=== PATIENT | female | born 1955 | race Hispanic/Latino ===

== ENCOUNTER 2024-07-12 17:56 | Emergency (ER) | payer OTHER ==
--- NOTE | 2024-07-12 19:23 | ER ---
Nurse's Notes [facility] Name: Codie Mullen Age: 69 yrs Sex: Female : 1955 Arrival Date: 07/12/2024 Time: 17:56 Bed 2 Private MD: Diagnosis: Contusion of right lesser toe(s) without damage to nail, initial encounter-HEMATOMA, UNROOFED Presentation: 07/12 18:10 Chief complaint: Patient states: Dropped cast iron on right foot on the and now cm10 has blister to 2nd toe on right foot. pt has noted to have bruising to foot. No pain at this time. Pt sent from urgent care. Coronavirus screen: Client denies travel out of the [place] in the last 14 days. Ebola Screen: Patient denies travel to an Ebola-affected area in the 21 days before illness onset. Initial Sepsis Screen: Does the patient meet any 2 criteria? No. Patient's initial sepsis screen is negative. Does the patient have a suspected source of infection? No. Patient's initial sepsis screen is negative. Risk Assessment: Do you want to hurt yourself or someone else? Patient reports no desire to harm self or others. Onset of symptoms was July 09, 2024. 18:10 Method Of Arrival: Ambulatory cm10 18:10 Acuity: COLE 4 cm10 Triage Assessment: 18:14 General: Appears in no apparent distress. comfortable, Behavior is calm, cooperative. cm10 Pain: Denies pain. Neuro: No deficits noted. Level of Consciousness is awake, alert, obeys commands, Oriented to person, place, time, situation, Appropriate for age. Respiratory: No deficits noted. Airway is patent Respiratory effort is even, unlabored, Respiratory pattern is regular, symmetrical. Derm: Wound noted right second toe Wound is blister Bruising that is dark purple, yellow, on right foot. Historical: - Allergies: 18:13 No Known Allergies; cm10 - Home Meds: 18:13 Hydrochlorothiazide Oral [Active]; cm10 - PMHx: 18:13 Diabetes mellitus; Arthritis; cm10 - Immunization history:: Adult Immunizations up to date. - Infectious Disease History:: Denies. - Social history:: Smoking status: Patient denies any tobacco usage or history of. - Family history:: not pertinent. Screenin:15 [facility] ED Fall Risk Assessment (Adult) History of falling in the last 3 months, cm10 including since admission No falls in past 3 months (0 pts) Confusion or Disorientation No (0 pts) Intoxicated or Sedated No (0 pts) Impaired Gait No (0 pts) Mobility Assist Device Used No (0 pt) Altered Elimination No (0 pt) Score/Fall Risk Level 0 - 2 = Low Risk Oriented to surroundings, Maintained a safe environment, Hourly rounding (assess needs \T\ fall precautionary measures) done. Abuse screen: Denies threats or abuse. Denies injuries from another. Nutritional screening: No deficits noted. Tuberculosis screening: No symptoms or risk factors identified. Assessment: 20:13 Reassessment: Patient appears in no apparent distress at this time. Patient and/or bm8 family updated on plan of care and expected duration. Pain level reassessed. Patient is alert, oriented x 3, equal unlabored respirations, skin warm/dry/pink. Patient states feeling better. Patient states symptoms have improved. Musculoskeletal: wound to top of right foot last three toes, already cleaned and ready for wrapping. Vital Signs: 18:10 BP 124 / 54; Pulse 97; Resp 18; Temp 98.2; Pulse Ox 94% on R/A; Weight 88.45 kg; Height cm10 5 ft. 6 in. ; Pain 0/10; 20:13 BP 139 / 73; Pulse 88; Resp 17; Temp 98.2; Pulse Ox 96% ; Pain 2/10; bm8 18:10 Body Mass Index 31.47 (88.45 kg, 167.64 cm) cm10 18:10 Pain Scale: Adult cm10 20:13 Pain Scale: Adult bm8 [place] Coma Score: 20:13 Eye Response: spontaneous(4). Motor Response: obeys commands(6). Verbal Response: bm8 oriented(5). Total: 15. ED Course: 17:59 Patient arrived in ED. hb 18:03 Xander Atkins MD is Attending Physician. kristina 18:10 Dorene Tate, RN is Primary Nurse. cm10 18:12 Triage completed. cm10 18:14 Arm band placed on right wrist. Patient placed in an exam room, on a stretcher. cm10 18:22 Patient has correct armband on for positive identification. Bed in low position. Call cm10 light in reach. Side rails up X 1. Provided Education on: ER process and procedures.. 18:48 Foot Right 3 View XRAY In Process Unspecified. EDNV 19:22 Bhanu Arce MD is Referral Physician. [facility] 19:22 Referral Physician role handed off by Bhanu Arce MD [facility] 19:22 Michael Tate MD is Referral Physician. kristina 20:13 Client placed on continuous cardiac and pulse oximetry monitoring. NIBP monitoring bm8 applied. Pulse ox on. NIBP on. 20:13 No provider procedures requiring assistance completed. Patient did not have IV access bm8 during this emergency room visit. Ortho shoe applied to right foot. Wound care: to crush wound located on right second toe and right foot was cleaned with dressed with Patient tolerated well. Administered Medications: 20:13 Drug: Cvfjrgsz-Okqsetqmlf-Dxrasedwp Topical Ointment 1 application Topical once Route: bm8 Topical; Site: affected area; 20:15 Follow up: Response: No adverse reaction bm8 20:13 Drug: Trimethoprim-Sulfamethoxazole PO (160 mg-800 mg (DS) 1 tablet PO once Route: PO; bm8 20:15 Follow up: Response: No adverse reaction bm8 20:13 Drug: Cephalexin PO 500 mg PO once Route: PO; bm8 20:15 Follow up: Response: No adverse reaction bm8 Medication: 18:15 VIS not applicable for this client. cm10 Outcome: 19:23 Discharge ordered by . kristina 20:13 Discharged to home ambulatory, with family, bm8 20:13 Condition: stable 20:13 Discharge instructions given to patient, family, Instructed on discharge instructions, follow up and referral plans. no drinking with medication, no driving heavy equipment, medication usage, Demonstrated understanding of instructions, follow-up care, medications, 20:18 Prescriptions given X 4, bm8 20:21 Patient left the ED. bm8 Signatures: Dispatcher [employer] EDXander Burnham MD MD cha Baxter, Heather, VALENCIA [place] Dorene Tate RN RN cm10 Charles Nguyen RN RN bm8
--- NOTE | 2024-07-12 19:23 | EDPHYS ---
Physician Documentation [facility] Name: Codie Mullen Age: 69 yrs Sex: Female : 1955 Arrival Date: 07/12/2024 Time: 17:56 Bed 2 Private MD: ED Physician Xander Atkins HPI: 07/12 19:18 This 69 yrs old Female presents to ER via Ambulatory with complaints of Foot kristina Pain. 19:18 The patient presents with a contusion, an injury. The complaints affect the right foot, kristina right second toe. Context: The problem was sustained at home. Onset: The symptoms/episode began/occurred 3 day(s) ago. Modifying factors: The symptoms are alleviated by nothing, the symptoms are aggravated by weight bearing. Associated signs and symptoms: The patient has no apparent associated signs or symptoms. Severity of symptoms: At their worst the symptoms were mild, in the emergency department the symptoms are unchanged. The patient has not experienced similar symptoms in the past. Historical: - Allergies: 18:13 No Known Allergies; cm10 - Home Meds: 18:13 Hydrochlorothiazide Oral [Active]; cm10 - PMHx: 18:13 Diabetes mellitus; Arthritis; cm10 - Immunization history:: Adult Immunizations up to date. - Infectious Disease History:: Denies. - Social history:: Smoking status: Patient denies any tobacco usage or history of. - Family history:: not pertinent. ROS: 19:18 Constitutional: Negative for fever, chills, and weight loss, Eyes: Negative for injury, kristina pain, redness, and discharge, ENT: Negative for injury, pain, and discharge, Neck: Negative for injury, pain, and swelling, Cardiovascular: Negative for chest pain, palpitations, and edema, Respiratory: Negative for shortness of breath, cough, wheezing, and pleuritic chest pain, Abdomen/GI: Negative for abdominal pain, nausea, vomiting, diarrhea, and constipation, Back: Negative for injury and pain, : Negative for injury, bleeding, discharge, and swelling, Neuro: Negative for headache, weakness, numbness, tingling, and seizure, Psych: Negative for depression, anxiety, suicide ideation, homicidal ideation, and hallucinations, Allergy/Immunology: Negative for hives, rash, and allergies, Endocrine: Negative for neck swelling, polydipsia, polyuria, polyphagia, and marked weight changes, Hematologic/Lymphatic: Negative for swollen nodes, abnormal bleeding, and unusual bruising, 19:18 MS/extremity: Positive for pain, of the right second toe, Exam: 19:18 Constitutional: This is a well developed, well nourished patient who is awake, alert, kristina and in no acute distress. Head/Face: Normocephalic, atraumatic. Eyes: Pupils equal round and reactive to light, extra-ocular motions intact. Lids and lashes normal. Conjunctiva and sclera are non-icteric and not injected. Cornea within normal limits. Periorbital areas with no swelling, redness, or edema. ENT: Nares patent. No nasal discharge, no septal abnormalities noted. Tympanic membranes are normal and external auditory canals are clear. Oropharynx with no redness, swelling, or masses, exudates, or evidence of obstruction, uvula midline. Mucous membranes moist. Neck: Trachea midline, no thyromegaly or masses palpated, and no cervical lymphadenopathy. Supple, full range of motion without nuchal rigidity, or vertebral point tenderness. No Meningismus. Chest/axilla: Normal chest wall appearance and motion. Nontender with no deformity. No lesions are appreciated. Cardiovascular: Regular rate and rhythm with a normal S1 and S2. No gallops, murmurs, or rubs. Normal PMI, no JVD. No pulse deficits. Respiratory: Lungs have equal breath sounds bilaterally, clear to auscultation and percussion. No rales, rhonchi or wheezes noted. No increased work of breathing, no retractions or nasal flaring. Abdomen/GI: Soft, non-tender, with normal bowel sounds. No distension or tympany. No guarding or rebound. No evidence of tenderness throughout. Back: No spinal tenderness. No costovertebral tenderness. Full range of motion. Skin: Warm, dry with normal turgor. Normal color with no rashes, no lesions, and no evidence of cellulitis. Neuro: Awake and alert, GCS 15, oriented to person, place, time, and situation. Cranial nerves II-XII grossly intact. Motor strength 5/5 in all extremities. Sensory grossly intact. Cerebellar exam normal. Normal gait. Psych: Awake, alert, with orientation to person, place and time. Behavior, mood, and affect are within normal limits. 19:18 Musculoskeletal/extremity: ROM: limited active range of motion due to pain, limited passive range of motion due to pain, Circulation is intact in all extremities. Sensation intact. Compartment Syndrome exam of affected extremity: is normal. Weight bearing: able to fully bear weight, without difficulty, Vital Signs: 18:10 BP 124 / 54; Pulse 97; Resp 18; Temp 98.2; Pulse Ox 94% on R/A; Weight 88.45 kg; Height cm10 5 ft. 6 in. ; Pain 0/10; 20:13 BP 139 / 73; Pulse 88; Resp 17; Temp 98.2; Pulse Ox 96% ; Pain 2/10; bm8 18:10 Body Mass Index 31.47 (88.45 kg, 167.64 cm) cm10 18:10 Pain Scale: Adult cm10 20:13 Pain Scale: Adult bm8 [place] Coma Score: 20:13 Eye Response: spontaneous(4). Motor Response: obeys commands(6). Verbal Response: bm8 oriented(5). Total: 15. Procedures: 19:18 Performed PUNCTURED BLOOD BLISTER X 4 , COVERED WITH NEOSPORN, DRESSED. [facility] MDM: 18:03 Medical Screening Exam initiated kristina 19:18 Differential diagnosis: fracture, arthritis, gout, cellulitis. Data reviewed: vital [facility] signs, nurses notes, radiologic studies, plain films. Consideration of Admission/Observation Escalation of care including admission/observation considered. I considered the following discharge prescriptions or medication management in the emergency department Medications were administered in the Emergency Department. See MAR. Independent interpretation of the following test(s) in the Emergency Department X-Ray: My interpretation is NO GROSS FX. Test considered but Not performed: Labs: NO LABS. Historians other than the Patient: Spouse/Significant Other: SPOUSE WELL INFORMED. Care significantly affected by the following chronic conditions: Diabetes, Obesity, ARTHRITIS. 07/12 18:15 Order name: Foot Right 3 View XRAY cm10 07/12 19:09 Order name: Wound Care; Complete Time: 20:13 [facility] 07/12 19:09 Order name: Post-op Orthopedic Shoe; Complete Time: 20:13 [facility] Administered Medications: 20:13 Drug: Ycbnizxb-Eflzmtixdx-Tucpwamyd Topical Ointment 1 application Topical once Route: bm8 Topical; Site: affected area; 20:15 Follow up: Response: No adverse reaction bm8 20:13 Drug: Trimethoprim-Sulfamethoxazole PO (160 mg-800 mg (DS) 1 tablet PO once Route: PO; bm8 20:15 Follow up: Response: No adverse reaction bm8 20:13 Drug: Cephalexin PO 500 mg PO once Route: PO; bm8 20:15 Follow up: Response: No adverse reaction bm8 Disposition Summary: 07/12/24 19:23 Discharge Ordered Notes: Location: Home [facility] Problem: new kristina Symptoms: have improved kristina Condition: Stable kristina Diagnosis - Contusion of right lesser toe(s) without damage to nail, initial encounter - kristina HEMATOMA, UNROOFED Followup: kristina - With: Private Physician - When: 2 - 3 days - Reason: Recheck today's complaints, Continuance of care, Re-evaluation by your physician Followup: kristina - With: Michael Tate MD - When: 1 - 2 days - Reason: Recheck today's complaints, Re-evaluation by your physician Discharge Instructions: - Discharge Summary Sheet kristina - Foot Contusion kristina - Hematoma kristina - Hematoma, [id number] kristina - Foot Contusion, [id number] [facility] Forms: - Medication Reconciliation Form [facility] - Antibiotic Education kristina - Prescription Opioid Use [facility] - Patient Portal Instructions [facility] - Leadership Thank You Letter [facility] Prescriptions: - Centany 2 % Topical ointment - apply 1 application TOPICAL route 3 times per day; 22 gram tube; Refills: 0, [facility] Product Selection Permitted - Cephalexin 500 mg Oral capsule - take 1 capsule ORAL route every 6 hours for 7 days; 28 capsule; Refills: 0, [facility] Product Selection Permitted - Fluconazole 200 mg Oral tablet - take 1 tablet ORAL route one time TAKE IN 1 WEEK IF NEEDED, REPEAT THE kristina FOLLOWING WEEK IF NEEDED; 2 tablet; Refills: 0, Product Selection Permitted - Bactrim DS 800-160 mg Oral Tablet - take 1 tablet ORAL route every 12 hours for 7 days; 14 tablet; Refills: 0, [facility] Product Selection Permitted Signatures: Dispatcher [employer] EDXander Burnham MD MD cha Martinez, Clarissa, RN RN cm10 Charles Nguyen, RN RN bm8 Corrections: (The following items were deleted from the chart) 18:15 18:15 Foot Right 3 View+RAD.RAD.BRZ ordered. EDSC ED
[2024-07-12] MEDS ORDERED: CEPHALEXIN 250 MG CAP ONE (20:04)
[2024-07-12] MEDS ORDERED: SMZ./TMP. 800/160 MG TABLET ONE (20:04)
[2024-07-12 20:26] VITALS: TEMP 98.2
[2024-07-12 20:27] VITALS: BP 139/73; O2SAT 96
--- NOTE | 2024-07-12 20:44 | RAD REPORT ---
EXAMINATION: XR Foot Right 3 View CLINICAL INDICATION: Female, 69 years old. [facility] [[email or web address]] MAIN PAIN Bed Name: 2 TECHNIQUE: 3 view radiographs of the right foot were obtained. COMPARISON: No prior exam. FINDINGS: No evidence of fracture or dislocation. Sequelae of first metatarsophalangeal screw fusion, and fusion prosthesis across the second proximal interphalangeal joint as well. Some osteopenia limits evaluation. No suspicious Focal bone lesion. Soft tissues are unremarkable apart from swelling along the lateral digits especially the second toe. Moderate degenerative changes most notably at the third and fourth interphalangeal joints. IMPRESSION: Soft tissue swelling most pronounced along the second digit. No evidence of an acute fracture. Degene rative changes and sequelae of hardware fusion as above.
== END 2024-07-12 20:21 | disposition home or self-care (01) ==
LOC: ER 17:56
DX: S90.121A Contusion of right lesser toe(s) without damage to nail, initial encounter (principal)
CPT/HCPCS: 99284